=== PATIENT | male | born 1995 | race Caucasian/White ===

== ENCOUNTER 2017-04-19 17:36 | Emergency (ER) | payer OTHER ==
[2017-04-19 17:43] VITALS: RESP 18
[2017-04-19] MEDS ORDERED: TDAP ADULT 0.5 ML INJ (BOOSTRIX) IM ONE (18:10)
--- NOTE | 2017-04-19 18:11 | EDPHY ---
H & P Stated Complaint: slammed l 3rd digit in car door/seen at /open fx Source: Patient Exam Limitations: No limitations - Personal History Current Tetanus/Diphtheria Vaccine: Unsure - Medical/Surgical History Hx Asthma: No Hx Chronic Respiratory Disease: No Hx Diabetes: No Hx Cardiac Disease: No Hx Renal Disease: No Hx Cirrhosis: No Hx Alcoholism: No Hx HIV/AIDS: No Hx Splenectomy or Spleen Trauma: No Other PMH: denies - Social History Smoking Status: Never smoked Time Seen by Provider: 04/19/17 18:05 HPI/ROS: HPI: This is a 21-year-old male presents with Chief Complaint: slammed l 3rd digit in car door/seen at /open fx Location: Left middle finger Quality: Injury Duration: 3-4 hours prior to arrival Signs and Symptoms: + bleeding, no radiation, no numbness, + weakness, no tingling, no incontinence, + decreased range of motion, + swelling, + pain Timing: Sudden Severity: Moderate to severe Context: Patient is right-hand dominant and accidentally slammed his left middle finger into his truck door. He was able to release his finger himself. He reports that he felt immediate, constant, nonradiating pain in his left distal middle finger that has remained to be 10/10. He reports that there was a lot of bleeding at 1st and he applied direct pressure. He noted he was unable to flex or extend his finger. Denies paresthesias/skin color changes. Unsure of his last tetanus shot. Patient went to urgent care and they took an x -ray that showed per patient distal finger fracture in 3 pieces and was told because it was open the need to go to the emergency room for further evaluation. Last food intake was apple at 1:00 p.m.. Modifying Factors: See above Comment: ROS: see HPI Constitutional: No fever, no chills, no weight loss Eyes: No blurred vision Respiratory: No shortness of breath, no cough Cardiovascular: No chest pain Gastrointestinal: No nausea, no vomiting no diarrhea Genitourinary: No dysuria Extremities: No myalgias Neurologic: No weakness, no numbness Skin: No rashes Hematologic: No bruising, no bleeding MEDICAL/SURGICAL/SOCIAL HISTORY: Medical history: Generally healthy. Does not take any regular medications. Surgical history: Denies Social history: Employed. CONSTITUTIONAL: Pleasant a young adult white male, awake and alert, no obvious distress HEENT: Atraumatic and normocephalic, PERRL, EOMI. Tympanic membranes clear. Oropharynx clear, no exudate and moist pink mucosa. Airway patent. No lymphadenopathy. No meningismus. Cardiovascular: Normal S1/S2, regular rate, regular rhythm, without murmur rub or gallop. PULMONARY/CHEST: Symmetrical and nontender. Clear to auscultation bilaterally. Good air movement. No accessory muscle usage. ABDOMEN: Soft, nondistended, nontender, no rebound, no guarding, no peritoneal signs, no masses or organomegaly. No CVAT. 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 Light touch sensation intact at the distal aspect of the finger. Good capillary refill. no clubbing, no cyanosis or edema. NEUROLOGICAL: no focal neuro deficits. GCS 15. SKIN: Warm and dry, no erythema. no rash. Good capillary refill. (Elana Em) Constitutional: Initial Vital Signs Temperature (C) 36.9 C 04/19/17 17:40 Heart Rate 79 04/19/17 17:40 Respiratory Rate 18 04/19/17 17:40 Blood Pressure 141/90 H 04/19/17 17:40 O2 Sat (%) 99 04/19/17 17:40 O2 Delivery Mode Room Air Allergies/Adverse Reactions: No Known Allergies Allergy (Unverified 04/19/17 17:40) Home Medications: Medication Instructions Recorded Cephalexin [Keflex (*)] 500 mg PO QID #28 cap 04/19/17 oxyCODONE/APAP 5/325 [Percocet 1 - 2 tab PO Q4H PRN #20 tab 04/19/17 5/325 (*)] Medical Decision Making Procedures: Procedure: Splint placement. A left middle finger splint was applied by the Emergency Room earth moving technician. After application of the splint I returned and re-examined the patient. The splint was adequately immobilizing the joint and distal to the splint the patient's circulation and sensation was intact. (Elana Em) ED Course/Re-evaluation: Evaluated this patient. I have reviewed the x-rays and had a discussion with Elana. This patient has an open finger fracture with a tendon injury. Patient has received and 7 a timely fashion and appropriate dressing. We are waiting the hand surgeon. (Bartolome Rowley) Patient brought disc from urgent care and will upload into PACS and shows comminuted fracture between the MCP and PIP joints. Tetanus booster given. High likelihood of Open fracture with definite tendon injury. IV Ancef given. Soaked in solution of 50 50 of Betadine and normal saline. 1835: ED decision to consult Hand surgery. Spoke with with Dr. Perez who advised that he agrees with copious irrigation, dressing (xeroform, splint, abx) He advises that he will see the patient Saturday in his office. Patient is to call around 9:00 a.m. for appointment time. He will likely be scheduled for outpatient ORIF and tendon repair. No signs of vascular compromise/compartment syndrome/extremities and joints examined above and below area of concern and are neurovascularly intact. This patient was seen under the supervision of my secondary supervising physician. I evaluated care for this patient independently. Discussed this patient with Dr. Thurman who did not see the patient. The patient was seen in conjunction with Dr. Thurman, who saw and evaluated the patient. Patient's presentation, labs/imaging, treatment and plan of care were discussed with secondary supervising physician. (Elana Em) Differential Diagnosis: Differential diagnosis includes but is not limited to open fracture, tendon injury, nerve injury, foreign body. (Elana Em) - Data Points Medications Given: Discontinued Medications Diphtheria/Tetanus/Acell Pertussis (Boostrix) 0.5 ml IM .ONCE ONE Stop: 04/19/17 18:11 Last Admin: 04/19/17 18:22 Dose: 0.5 ml Cefazolin Sodium/Dextrose (Ancef 1 Gm (Premix)) 50 mls @ 200 mls/hr IV EDNOW ONE PRN Reason: Protocol Stop: 04/19/17 18:24 Last Admin: 04/19/17 18:21 Dose: 50 mls Morphine Sulfate (Morphine) 4 mg IVP EDNOW ONE Stop: 04/19/17 18:11 Last Admin: 04/19/17 18:21 Dose: 4 mg Oxycodone/Acetaminophen (Percocet 5/325) 2 tab PO EDNOW ONE Stop: 04/19/17 19:35 Last Admin: 04/19/17 19:59 Dose: 2 tab Departure - Departure Disposition: Home, Routine, Self-Care Clinical Impression: Open fracture of finger of left hand Qualifiers: Encounter type: initial encounter Finger: middle finger Phalanx: proximal Fracture alignment: displaced Qualified Code(s): S62.613B - Displaced fracture of proximal phalanx of left middle finger, initial encounter for open fracture Finger laceration involving tendon Qualifiers: Encounter type: initial encounter Qualified Code(s): S61.219A - Laceration without foreign body of unspecified finger without damage to nail, initial encounter Condition: Good Instructions: Finger Fracture (ED), Tendon Rupture (ED), ORIF (DC) Additional Instructions: Keep the splint and dressing dry until seen by Orthopedics. Take Tylenol 650 mg every 4 hours and/or Ibuprofen 600 mg every 8 hours with food as needed for pain. Use Percocet every 6 hours as needed for severe/breakthrough pain. Do not use Tylenol and Percocet concomitantly. Elevated the left arm above your heart as much as possible the next few days. Apply ice for 30 minutes at a time; 2-3 times per day for the next 1-2 days. Take all Keflex as directed until complete. Please call Dr. Gray's office on Saturday around 9:00 a.m. for your appointment time that same day. It is anticipated that you will have surgical repair of both your tendon and bone. Referrals: Raz Gray MD [Medical Doctor] - As per Instructions Stand Alone Forms: School Excuse Prescriptions: Cephalexin [Keflex (*)] 500 mg PO QID #28 cap oxyCODONE/APAP 5/325 [Percocet 5/325 (*)] 1 - 2 tab PO Q4H PRN #20 tab PRN Reason: Pain, Severe
[2017-04-19] MEDS ORDERED: OXYCODONE/APAP 5/325 TAB PO ONE (19:34)
[2017-04-19 20:02] VITALS: BP 162/82; PULSE 84; TEMP 98.6; O2SAT 98
[2017-04-19] MEDS ORDERED: OXYCODONE/APAP 5/325MG PREPACK#4 BTL TAKEHOME ONE (20:03)
== END 2017-04-19 20:20 | disposition home or self-care (01) ==
DX: S62.613B Displaced fracture of proximal phalanx of left middle finger, initial encounter for open fracture (principal); Z23 Encounter for immunization; W23.0XXA Caught, crushed, jammed, or pinched between moving objects, initial encounter; Y93.89 Activity, other specified
CPT/HCPCS: 96365; J0690; L3925

== ENCOUNTER 2017-04-21 09:16 | Emergency (ER) | payer OTHER ==
[2017-04-21 09:29] VITALS: BP 154/80; PULSE 74; RESP 16; TEMP 98.2; O2SAT 96
--- NOTE | 2017-04-21 10:09 | EDPHY ---
H & P Time Seen by Provider: 04/21/17 09:27 HPI/ROS: CHIEF COMPLAINT: Wound recheck HISTORY OF PRESENT ILLNESS: 21-year-old male presents to the emergency department with injury to the left middle finger. The patient was seen in the emergency department 2 days ago. He has an open fracture with an extensor tendon injury. The patient has been taking Keflex as prescribed. He was concerned about the amount of drainage she had from the wound. ROS: Denies numbness or tingling in his fingers. No Fevers or chills. Past Medical/Surgical History: Negative Social History: Single Smoking Status: Never smoked Physical Exam: On examination the dressing and splint were removed the wound was examined. The patient has a small 1 cm laceration to the dorsal aspect of his left 3rd finger just proximal to the PIP joint of the left 3rd finger. There is no active bleeding noted. No surrounding redness or signs of infection. Normal sensation to light touch with normal 2 point discrimination. Normal capillary refill. The other fingers do not appear injured. Constitutional: Initial Vital Signs Temperature (C) 36.8 C 04/21/17 09:23 Heart Rate 74 04/21/17 09:23 Respiratory Rate 16 04/21/17 09:23 Blood Pressure 154/80 H 04/21/17 09:23 O2 Sat (%) 96 04/21/17 09:23 O2 Delivery Mode Room Air Allergies/Adverse Reactions: No Known Allergies Allergy (Unverified 04/19/17 17:40) Home Medications: Medication Instructions Recorded Cephalexin [Keflex (*)] 500 mg PO QID #28 cap 04/19/17 oxyCODONE/APAP 5/325 [Percocet 1 - 2 tab PO Q4H PRN #20 tab 04/19/17 5/325 (*)] MDM/Departure - MDM ED Course/Re-evaluation: The wound was redressed and resplinted and june-taped. The x-rays from his previous visit were reviewed and he was given copies of these to take with him to see Dr. steiner tomorrow, Saturday. He was encouraged to continue his antibiotics as prescribed and return if he had any other concerns. He was comfortable with this plan. - Depart Disposition: Home, Routine, Self-Care Clinical Impression: Encounter for wound re-check Condition: Good Instructions: Acute Wounds (ED) Additional Instructions: Continue antibiotics as prescribed. Call tomorrow morning to schedule appointment to be seen by Dr. Gray's tomorrow. Tell them that you were seen in the emergency department and they spoke with him at your initial visit on 04/19. Referrals: Raz Gray MD [Medical Doctor] - 1 day without fail
== END 2017-04-21 10:17 | disposition home or self-care (01) ==
DX: Z48.01 Encounter for change or removal of surgical wound dressing (principal)
CPT/HCPCS: G0463